=== PATIENT | female | born 1985 | race American Indian/Alaskan Native ===

== ENCOUNTER 2020-02-08 11:45 | Outpatient (CLI) | payer MEDICAID ==
[2020-02-08 13:06] VITALS: BP 126/64
[2020-02-08] MEDS ORDERED: LACTATED RINGERS 1,000 ML IV SCH (13:15)
[2020-02-08 14:13] LABS: Bilirubin,Urine NEG (Negative); Blood,Urine NEG (Negative); Color,Urine Yellow (Yellow); Mucus,Urine FEW /HPF
[2020-02-08] MEDS ORDERED: BETAMET ACET/BETAMET NA PH 6 MG/ML INJ 5 ML MDV IM ONE (15:41)
== END 2020-02-08 16:11 | disposition home or self-care (01) ==
LOC: TRG 11:45 → APU 11:47 → TRG 16:11
PROVIDERS: ATTEND Obstetrics & Gynecology
DX: O47.03 False labor before 37 completed weeks of gestation, third trimester (principal); O34.33 Maternal care for cervical incompetence, third trimester; Z3A.29 29 weeks gestation of pregnancy
CPT/HCPCS: 59025; 81001; 96372; J0702

== ENCOUNTER 2020-02-09 16:56 | Outpatient (CLI) | payer MEDICAID ==
[2020-02-09] MEDS ORDERED: LACTATED RINGERS 500 ML IV ONE (17:33)
[2020-02-09] MEDS ORDERED: BETAMET ACET/BETAMET NA PH 6 MG/ML INJ 5 ML MDV IM ONE (18:00)
== END 2020-02-09 17:42 | disposition home or self-care (01) ==
LOC: TRG 16:56 → APU 16:57 → TRG 17:42
PROVIDERS: ATTEND Obstetrics & Gynecology
DX: O47.03 False labor before 37 completed weeks of gestation, third trimester (principal); Z3A.29 29 weeks gestation of pregnancy
CPT/HCPCS: 96372; J0702

== ENCOUNTER 2020-04-17 05:08 | Inpatient (IN) | payer MEDICAID, OTHER ==
[2020-04-17] MEDS ORDERED: LACTATED RINGERS 1,000 ML ONE (05:43)
[2020-04-17] MEDS: LACTATED RINGERS 1,000 ML IV SCH ×3 (05:50→08:48)
[2020-04-17] MEDS ORDERED: METOCLOPRAMIDE 10 MG/2 ML INJ IV ONE (05:57)
[2020-04-17] MEDS ORDERED: FAMOTIDINE 20 MG/2 ML INJ IV ONE ×2 (05:57→08:41)
[2020-04-17] MEDS ORDERED: BICITRA ORAL LIQD 30ML PO ONE (05:57)
[2020-04-17] MEDS ORDERED: OXYTOCIN DRIP 30 UNITS/500 ML BAG IV SCH ×2 (06:00→19:00)
[2020-04-17 06:24] LABS: Basophils % (Auto) 0.1 % (0.0-1.8); Eosinophils # (Auto) 0.1 K/mm3 (0.0-0.4); Eosinophils % (Auto) 0.8 % (0.0-4.3); Hematocrit 32.7 % (30.3-42.9); Hemoglobin 11.4 gm/dl (10.1-14.3); Lymphocytes # (Auto) 2.8 K/mm3 (1.2-5.4); Lymphocytes % (Auto) 30.6 % (13.4-35.0); Mean Corpuscular HGB Conc 35 % (30-34); Mean Corpuscular Volume 83 fl (79-97); Monocytes % (Auto) 11.1 % (0.0-7.3); Platelet Count 207 K/mm3 (140-440); Red Blood Count 3.93 M/mm3 (3.65-5.03); Red Cell Distribution Width 13.7 % (13.2-15.2)
--- NOTE | 2020-04-17 07:54 | Anesthesia Day of Surgery ---
Anesthesia Day of Surgery - Day of Surgery Patient Examined: Yes Patient H&P Reviewed: Yes Patient is NPO: Yes
--- NOTE | 2020-04-17 07:54 | Anesthesia Consultation ---
Anesthesia Consult and Med Hx Date of service: 04/17/20 - Airway Anesthetic Teeth Evaluation: Good ROM Head & Neck: Adequate Mental/Hyoid Distance: Adequate Mallampati Class: Class II Intubation Access Assessment: Probably Good - Pulmonary Exam CTA: Yes - Cardiac Exam Cardiac Exam: RRR - Pre-Operative Health Status ASA Pre-Surgery Classification: ASA3 Proposed Anesthetic Plan: Spinal - Pulmonary Hx Smoking: Yes Hx Asthma: No COPD: No Hx Pneumonia: No - Cardiovascular System Hx Hypertension: No - Central Nervous System Hx Seizures: No Hx Psychiatric Problems: No - Endocrine Hx Renal Disease: No Hx End Stage Renal Disease: No Hx Hypothyroidism: No Hx Hyperthyroidism: No - Hematic Hx Anemia: Yes (on meds) Hx Sickle Cell Disease: No - Other Systems Hx Alcohol Use: Yes (occasionally) Hx Obesity: Yes
[2020-04-17] MEDS ORDERED: ceFAZolin/Water 2 GM/20 ML 2 GM/20 ML SYRINGE IV SCH (08:00)
[2020-04-17] MEDS ORDERED: METOCLOPRAMIDE 10 MG/2 ML INJ ONE (08:41)
[2020-04-17] MEDS ORDERED: ceFAZolin/Water 2 GM/20 ML 2 GM/20 ML SYRINGE IV ONE (08:41)
[2020-04-17] MEDS ORDERED: BICITRA ORAL LIQD 30ML ONE (08:42)
--- NOTE | 2020-04-17 10:10 | History and Physical Report ---
History of Present Illness Date of examination: 04/17/20 Date of admission: 04/17/20 05:08 Chief complaint: here for scheduled repeat section but she would prefer as TOLAC and if unsucessful then she will do a c/section History of present illness: at 39.0wks by LMP c/w U/Sound. Pt admits to movement and states she had no food since midnight. Pt also admits to feeling ctx but same not painful. Pt denies headache or LOF or vaginal bleeding. Pt states that she got steroids in January with FFN+ noted in records and short cervix. Pt is taking vitamins onliy when asked. 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 and is not on any valtrex med suppression) Family/Genetic History: none Social history: no significant social history - Obstetrical History Expected Date of Delivery: 04/24/20 Actual Gestation: 39 Week(s) 0 Day(s) : 6 Para: 5 Hx # Term Pregnancies: 5 ( x4 then c/s in 2018 for failure to descend) Number of Living Children: 5 Medications and Allergies Allergies Allergy/AdvReac Type Severity Reaction Status Date / Time No Known Allergies Allergy Unverified 02/08/20 12:04 Home Medications Medication Instructions Recorded Confirmed Last Taken Type No Known Home Medications [No 04/17/20 04/17/20 Unknown History Reported Home Medications] Active Meds: Active Medications Lactated Ringer's (Lactated Ringers) 1,000 mls @ 2,250 mls/hr IV PREOP NICHOLAS Stop: 04/18/20 06:27 Last Admin: 04/17/20 08:48 Dose: 2,250 mls/hr Documented by: Oxytocin/Sodium Chloride (Pitocin/Ns 30 Unit/500ml) 30 units in 500 mls @ 0 mls/hr IV TITR NICHOLAS; Protocol Review of Systems All systems: negative (none. Pt really would like a trial of labor) - Vital Signs Vital signs: Vital Signs Temp Pulse Resp BP Pulse Ox 98.4 F 77 18 126/75 98 04/17/20 06:10 04/17/20 06:10 04/17/20 06:10 04/17/20 06:10 04/17/20 06:10 Temp Pulse Resp BP Pulse Ox 98.4 F 75 18 126/75 99 04/17/20 06:10 04/17/20 06:50 04/17/20 06:10 04/17/20 06:10 04/17/20 06:50 - Physical Exam Breasts: Positive: deferred Cardiovascular: Regular rate Abdomen: Positive: soft Genitourinary (Female): Positive: normal external genitalia Vulva: both: normal (no lesions seen) Vagina: Positive: normal moisture Uterus: Positive: enlarged (non-tender gravid) Extremities: Positive: normal - Obstetrical FHR: category 1 Uterine Contraction Monitor Mode: External Cervical Dilatation: 6.5 Cervical Effacement Percentage: 90 station: -3 Uterine Contraction Pattern: Regular Uterine Contraction Intensity: Mild Results Result Diagrams: 04/17/20 05:50 Abnormal lab results 04/17/20 Range/Units 05:50 MCHC 35 H (30-34) % [place] % (Auto) 11.1 H (0.0-7.3) % [place] # (Auto) 1.0 H (0.0-0.8) K/mm3 All other labs normal. Assessment and Plan Grand multiparous, Morbid obesity with previous section x1 done, now in active labor and desires TOLAC aware of the risks and benefits; 1. Admit to labor and delivery, reminded pt of the risks, benefits and alternatives of TOLAC 2. U/Sound ordered and same done here at [facility] with EFW now 8lb 0oz; will get pt epidural and AROM following with salcedo cath already placed by nurse due to pt habitus and anticipation of preop for surgery. 3. Expect with no active lesions for HSVII 4. Will start herpes suppression with valtrex med All questions encouraged and answered
--- NOTE | 2020-04-17 10:15 | Ultrasound Report ---
Limited OB Ultrasound HISTORY: ESTIMATED WEIGHT/ MACROSOMIA. TECHNIQUE: Grayscale and color imaging performed. COMPARISON: None FINDINGS: There is a single intrauterine gestation with cephalic presentation. KOKO is 32 cm which is increased. Heart rate is 122 bpm. Overall EGA by ultrasound is 38 weeks and 4 days compared to clinic al gestational age of 39 weeks and 0 days. The estimated delivery date by ultrasound is 04/27/2020. Est imated weight is 3644 g. The cephalic index is 0.96 and the head circumference to abdominal cir cumference ratio is 78. IMPRESSION: Single viable intrauterine gestation as outlined above with elevated KOKO. Signer Name: Josh Pereira MD Signed: 04/17/2020 10:10 AM Workstation Name: [id number]
[2020-04-17] MEDS ORDERED: ePHEDrine SULFATE 50 MG/1 ML INJ ONE (10:40)
--- NOTE | 2020-04-17 10:58 | Progress Note ---
Labor Epidural - Labor Epidural Start Time: 10:47 Stop Time: 10:50 Performed by:: BRIANNE ARZOLA Procedure: Patient is requesting epidural for labor pain. H&P, and labs reviewed. Procedure explained, questions answered, consent obtained. Patient in sitting position with blood pressure cuff and pulse ox on and working. Timeout performed immediately before start of procedure. Sterile chlorahexadine 0.5% prep/drape. 3 mL 1% lidocaine skin wheal at L[3]-L[4]. 18-gauge FoundValue epidural needle advanced to [id number] with saline at 9 cm. Epidural dexmedetomidine [30] mcg administered. Epidural catheter advanced to 15 cm, negative aspiration for blood and csf, negative test dose 3 ml 1.5% lidocaine with epinephrine. Sterile steri-strips and tegaderm applied, followed by tape reinforcement. Patient tolerated procedure well.
[2020-04-17] MEDS ORDERED: NALOXONE 2 MG/2 ML INJ IV PRN (11:00)
[2020-04-17] MEDS ORDERED: fentaNYL-BUPIV 2 MCG/ML-0.125% 200 MCG/100 ML BAG EPIDURAL SCH (11:00)
[2020-04-17] MEDS ORDERED: ePHEDrine SULFATE 50 MG/1 ML INJ IV PRN (11:30)
[2020-04-17] MEDS ORDERED: SODIUM CHLORIDE 0.9% 500 ML 500 ML IV SCH (11:30)
--- NOTE | 2020-04-17 14:21 | Event Note ---
Date: 04/17/20 pt evaluated after receiving epidural and pelvic unchanged. Pitocin at 2mu/min. Pt sitting upwards and station -3. and pelvic by me unchanged. /-3; Nurse told to place left lateral and increase pitocin per protocol. Will AROM with descent. Pt will remain NPO. Expect . FHR remains cateory I with irregular ctx.
[2020-04-17] MEDS ORDERED: LACTATED RINGERS 1,000 ML IV SCH (14:30)
[2020-04-17] MEDS ORDERED: MINERAL OIL 30 ML ORAL LIQD ONE (17:37)
[2020-04-17] MEDS ORDERED: miSOPROStol 200 MCG TAB ONE (18:17)
[2020-04-17] MEDS ORDERED: KETOROLAC 30 MG/1 ML INJ IV ONE (18:35)
--- NOTE | 2020-04-17 18:41 | Event Note ---
Date: 04/17/20 pt evaluated and now pelvic /-2 and not ballotable in left lateral decubitus, AROM done at 1700 using the FSE with clear fluid trickling. pt with polyhydramnios KOKO 30 on u/s done here earlier today by radiology team. FHR category 1 and ctx every 2-3mins on pitocin 8mu/min; Anticipate
[2020-04-17] MEDS ORDERED: LANOLIN/ZINC/DIMETHICONE (LANSINOH) 7 GM TP PRN (18:42)
[2020-04-17] MEDS ORDERED: WITCH HAZEL/ GLYCERIN PAD TP PRN (18:42)
[2020-04-17] MEDS ORDERED: MAGNESIUM HYDROXIDE (MOM) ORAL LIQD UDC PO PRN (18:42)
[2020-04-17] MEDS ORDERED: diphenhydrAMINE 25 MG CAP PO PRN (18:42)
[2020-04-17] MEDS ORDERED: PROMETHAZINE 25 MG TAB PO PRN (18:42)
[2020-04-17] MEDS ORDERED: ONDANSETRON 4 MG/2 ML INJ IV PRN (18:42)
[2020-04-17] MEDS ORDERED: PROMETHAZINE 25 MG RECT SUPP PR PRN (18:42)
[2020-04-17] MEDS ORDERED: miSOPROStol 200 MCG TAB PR ONE (18:55)
--- NOTE | 2020-04-17 19:13 | Procedure Note ---
OB Delivery Note - Delivery Date of Delivery: 04/17/20 Surgeon: VANDANA LUCIO Estimated blood loss: other (350cc) - Vaginal Delivery presentation: vertex Delivery position: OA Intrapartum events: shoulder dystocia Delivery induction: none Delivery augmentation: pitocin Delivery monitor: external FHT, external uterine Route of delivery: Delivery placenta: spontaneous Episiotomy: none Delivery laceration: none Anesthesia: epidural Delivery comments: Successful of viable female at 18:02pm with shoulder dystocia. Pt not pushing effectively after delivery of the head. We called for additional help from staff. I Continued shoulder dystocia maneuvers with Dennis, suprapubic pressure, delivery of left posterior arm and clockwise rotation. Shoulder dystocia time lasted 3mins per nurse report. NICU called and evaluated infant. APGARS 3/8; Umbilical artery gas pH 7.28; BE-3.5; able to move both arm equally prior to the end of NICU assessment with no crepitus felt at the clavicles per NICU staff. Pt sustained no vaginal laceration and placenta spontaneously delivered with 3vessel cord. Pt had copious KOKO approx 2liters that came after baby delivered therefore. Bimanual massage done and IV pitocin givne and cytotec 800mcg OR prophylaxis. Will evaluate closely post delivery and then transfer to . Mom and stable and pt breast feeding. Placenta sent to pathology with successful and normal umbilical artery gas with 1min at 3 - Infant A at 1 minute: 3 at 5 minutes: 8 Infant Gender: Female (Female ; wt 4040g; Umb artery pH 7.28 and BE-3.5)
[2020-04-17] MEDS: DOCUSATE SODIUM 100 MG CAP PO SCH (22:56)
[2020-04-18] MEDS: IBUPROFEN 600 MG TAB PO SCH ×3 (02:11→13:00)
[2020-04-18 08:29] LABS: Mean Corpuscular HGB Conc 33 % (30-34); Mean Corpuscular Volume 84 fl (79-97); Platelet Count 182 K/mm3 (140-440); Red Blood Count 3.56 M/mm3 (3.65-5.03); Red Cell Distribution Width 13.8 % (13.2-15.2)
[2020-04-18] MEDS: DOCUSATE SODIUM 100 MG CAP PO SCH (10:37)
--- NOTE | 2020-04-18 11:24 | Discharge Summary ---
Providers - Providers Date of Admission: 04/17/20 05:08 Date of discharge: 04/18/20 Attending physician: FLORESITA KINGSTON JR, MD Primary care physician: FLORESITA KINGSTON JR, MD Hospitalization Reason for admission: active labor Delivery: Episiotomy: none Laceration: none Other procedures: none complications: none Discharge diagnosis: other (anemia), baby: female Hospital course: See admission H & P; OB delivery summary and PP progress notes Condition at discharge: Good Disposition: DC-01 TO HOME OR SELFCARE - Discharge Diagnoses (1) , delivered Status: Acute (2) Anemia Status: Acute Qualifiers: Anemia type: other cause Other causes of anemia: acute posthemorrhagic Qualified Code(s): D62 - Acute posthemorrhagic anemia Comment: Asymptomatic Plan - Provider Discharge Summary Activity: routine, no sex for 6 weeks, no heavy lifting 4 weeks, no strenuous exercise Diet: other (Iron rich diet) Instructions: routine Additional instructions: [] Smoking cessation referral if applicable(refer to patient education folder for contact #) [] Refer to [facility]'s [facility] Center Booklet Call your doctor immediately for: * Fever > 100.5 * Heavy vaginal bleeding ( >1 pad per hour) * Severe persistent headache * Shortness of breath * Reddened, hot, painful area to leg or breast - Follow up plan Follow up: FLORESITA KINGSTON JR, MD [Primary Care Provider] - 6 Weeks
[2020-04-18] MEDS: oxyCODONE /ACETAMINOPHEN 5-325MG TAB PO PRN (12:25)
--- NOTE | 2020-04-18 17:15 | Post Anesthesia Evaluation ---
- Post Anesthesia Evaluation Patient Participated: Yes Airway Patent: Yes Stable Respiratory Function: Yes Nausea/Vomiting: No Temp > 96.8F: Yes Pain Manageable: Yes Adequeate Hydration: Yes Anesthesia Complications: No Block Receding Appropriately: Yes
[2020-04-19] MEDS: oxyCODONE /ACETAMINOPHEN 5-325MG TAB PO PRN ×2 (00:16→06:36)
[2020-04-19] MEDS: DOCUSATE SODIUM 100 MG CAP PO SCH (00:16)
[2020-04-19] MEDS: IBUPROFEN 600 MG TAB PO SCH ×2 (00:18→06:36)
[2020-04-19 17:12] VITALS: BP 137/64
== END 2020-04-19 16:45 | disposition home or self-care (01) | DRG 774 ==
LOC: APU 05:08 → LD 10:49 → OB 20:32
PROVIDERS: ADMIT Obstetrics & Gynecology; ATTEND Obstetrics & Gynecology
PROC: 10E0XZZ Delivery of Products of Conception, External Approach (ICD-10-PCS; principal; 2020-04-17)
PROC: 3E0R3BZ Introduction of Anesthetic Agent into Spinal Canal, Percutaneous Approach (ICD-10-PCS; 2020-04-17)
PROC: 00HU33Z Insertion of Infusion Device into Spinal Canal, Percutaneous Approach (ICD-10-PCS; 2020-04-17)
PROC: 3E033VJ Introduction of Other Hormone into Peripheral Vein, Percutaneous Approach (ICD-10-PCS; 2020-04-17)
PROC: 4A033R1 Measurement of Arterial Saturation, Peripheral, Percutaneous Approach (ICD-10-PCS; 2020-04-17)
DX: O34.219 Maternal care for unspecified type scar from previous cesarean delivery (principal); O98.32 Other infections with a predominantly sexual mode of transmission complicating childbirth; Z20.822 Contact with and (suspected) exposure to COVID-19; N85.8 Other specified noninflammatory disorders of uterus; O99.334 Smoking (tobacco) complicating childbirth; O99.214 Obesity complicating childbirth; E66.01 Morbid (severe) obesity due to excess calories; D62 Acute posthemorrhagic anemia; O99.02 Anemia complicating childbirth; A60.00 Herpesviral infection of urogenital system, unspecified; O40.3XX0 Polyhydramnios, third trimester, not applicable or unspecified; Z37.0 Single live birth; Z3A.39 39 weeks gestation of pregnancy
CPT/HCPCS: 36415; 76816; 82805; 85025; 85027; 86592; 86850; 86900; 86901; 86920; 88307; G0378; J1885; J2590; J2765; J7120; U0003